=== PATIENT | female | born 1960 | race Caucasian/White ===

== ENCOUNTER 2019-08-18 18:51 | Emergency (ER) | payer OTHER ==
--- NOTE | 2019-08-18 19:01 | PDOC ---
Rapid Medical Evaluation Time Seen by Provider: 08/18/19 18:57 Medical Evaluation: Allergies Allergy/AdvReac Type Severity Reaction Status Date / Time No Known Allergies Allergy Verified 11/06/11 08:05 08/18/19 18:58 CC: headache x1 month s/p striking head on metal bar PE: No focal neuro findings Orders: nothing Patient will proceed to ER for further evaluation. Discharge Disposition - Diagnosis Headache - Referrals - Patient Instructions - Post Discharge Activity
[2019-08-18 19:06] VITALS: BP 143/85; PULSE 70; TEMP 98.2; BMI 23.5
[2019-08-18] MEDS ORDERED: ACETAMINOPHEN 325 MG TABLET (FP) PO ONE (19:18)
[2019-08-18] MEDS ORDERED: ACETAMINOPHEN 325 MG TABLET (FP) ONE (19:20)
--- NOTE | 2019-08-18 19:23 | PDOC ---
History of Present Illness - General Chief Complaint: Headache Stated Complaint: HEAD PAIN Time Seen by Provider: 08/18/19 18:57 History Source: Patient - History of Present Illness Timing/Duration: reports: other Severity: Yes: moderate Past History - Past Medical History Allergies/Adverse Reactions: Allergies Allergy/AdvReac Type Severity Reaction Status Date / Time No Known Allergies Allergy Verified 08/18/19 19:04 Home Medications: Ambulatory Orders Sertraline HCl [Zoloft] 100 mg PO DAILY 11/06/11 Clonazepam [Klonopin] 1 mg PO DAILY 11/17/13 FA/Mv,Ca,Iron,Min/Lycopene/Lut [Centrum Tablet] 1 each PO DAILY 11/17/13 Progesterone, Micronized [Progesterone] 100 mg PO DAILY 11/17/13 Anemia: No Asthma: No Cancer: No Cardiac Disorders: No CVA: No COPD: No CHF: No Dementia: No Diabetes: No GI Disorders: No Disorders: No HTN: No Hypercholesterolemia: No Liver Disease: No Seizures: No Thyroid Disease: No - Surgical History Abdominal Surgery: No Appendectomy: No Cardiac Surgery: No Cholecystectomy: No Lung Surgery: No Neurologic Surgery: No Orthopedic Surgery: No - Psycho Social/Smoking Cessation Hx Smoking History: Never smoked Have you smoked in the past 12 months: No Information on smoking cessation initiated: No Hx Alcohol Use: No Drug/Substance Use Hx: No Substance Use Type: None Hx Substance Use Treatment: No Review of Systems - Review of Systems ABD/GI: Yes: Nausea. No: Vomiting Neurological: Yes: Headache. No: Numbness, Tingling, Weakness, Dizziness *Physical Exam - Vital Signs Last Vital Signs Temp Pulse Resp BP Pulse Ox 98.2 F 70 18 143/85 96 08/18/19 19:02 08/18/19 19:02 08/18/19 19:02 08/18/19 19:02 08/18/19 19:02 - Physical Exam General Appearance: Yes: Appropriately Dressed. 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 negative: Responsive, Facial Droop, Sensory Deficit, Confused, Disoriented ED Treatment Course - RADIOLOGY Radiology Studies Ordered: Category Date Time Status HEAD CT WITHOUT CONTRAST [CT] Stat CT Scan 08/18/19 19:17 Ordered Medical Decision Making - Medical Decision Making 08/18/19 19:18 59-year-old female, denies any past medical history, and not on blood thinners, here for evaluation of ongoing headache s/p head injury. Patient states 1 month ago she accidentally struck head against metal monkey bars in [facility]. Initially felt dazed but no LOC. 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 States symptoms did resolve but then came back a week ago. Complaining mostly of frontal headache. No n/v currently. Denies dizziness, vertigo, visual changes or focal weakness see exam Possible concussion s/p closed head injury 1 month ago Not on blood thinners Neuro intact -Will get CT r/o subacute bleed given hx -pain control -Anticipate discharge w/ neuro referral 08/18/19 19:53 CT head read as negative. Patient stable to be discharged to follow-up with Dr. Cordova of neurology Discharge - Discharge Information Problems reviewed: Yes Clinical Impression/Diagnosis: H/O head injury Headache Qualifiers: Headache type: unspecified Headache chronicity pattern: unspecified pattern Intractability: not intractable Qualified Code(s): R51 - Headache Condition: Good Disposition: HOME - Follow up/Referral Referrals: Johnna Christianson MD [Primary Care Provider] - Herbert Cordova MD [Staff Physician] - - Patient Discharge Instructions Patient Printed Discharge Instructions: Concussion Additional Instructions: Your head CT was normal. Your symptoms are most likely due to a concussion which will gradually improve over weeks to months as discussed today Take Tylenol for headache as needed and follow-up with Dr. Cordova of neurology - Post Discharge Activity Work/Back to School Note: Back to Work
== END 2019-08-18 19:56 | disposition home or self-care (01) ==
LOC: JERFT 18:51
DX: S09.8XXA Other specified injuries of head, initial encounter (principal); R51 Headache; W22.8XXA Striking against or struck by other objects, initial encounter; Y93.89 Activity, other specified; Y92.830 Public park as the place of occurrence of the external cause; Y99.8 Other external cause status; R11.0 Nausea
CPT/HCPCS: 70450-TC; 99281-25

== ENCOUNTER 2020-08-28 08:38 | Observation (INO) | payer OTHER ==
[2020-08-28 10:54] LABS: PH,URINE 6.5 (5.0-8.0); URINE APPEARANCE CLEAR; URINE BILIRUBIN NEGATIVE (NEGATIVE); URINE COLOR YELLOW; URINE GLUCOSE (UA) NEGATIVE (NEGATIVE); URINE KETONE NEGATIVE (NEGATIVE); URINE LEUK ESTERASE NEGATIVE (NEGATIVE); URINE NITRITE NEGATIVE (NEGATIVE); URINE PROTEIN NEGATIVE (NEGATIVE); URINE UROBILINOGEN 0.2 mg/dL (0.2-1.0)
[2020-08-28 11:07] LABS: CHLORIDE 106 mmol/L (98-107); POTASSIUM 4.1 mmol/L (3.5-5.1); SODIUM 141 mmol/L (136-145)
[2020-08-28 11:09] LABS: ALBUMIN 3.9 g/dl (3.4-5.0); ANION GAP 6 MMOL/L (8-16); CALCIUM 8.6 mg/dL (8.5-10.1); CO2 30 mmol/L (21-32); GLUCOSE,RANDOM 85 mg/dL (74-106)
[2020-08-28 11:10] LABS: BLOOD UREA NITROGEN 9.8 mg/dL (7-18)
[2020-08-28 11:12] LABS: CREATININE 0.7 mg/dL (0.55-1.3)
[2020-08-28 11:13] LABS: SGOT/AST 19 U/L (15-37); SGPT/ALT 38 U/L (13-61)
[2020-08-28 11:14] LABS: BILIRUBIN,TOTAL 0.3 mg/dL (0.2-1); TOT PROT 7.2 g/dl (6.4-8.2)
[2020-08-28 11:15] LABS: ALK PHOS 66 U/L (45-117)
[2020-08-28 11:20] LABS: BASO % 0.7 % (0-2.0); EOS % 1.9 % (0-4.5); HEMATOCRIT 37.1 % (32.4-45.2); HEMOGLOBIN 12.7 GM/dL (10.7-15.3); LYMPH % 37.2 % (8-40); MCH 32.5 pg (25.7-33.7); MCHC 34.2 g/dl (32.0-36.0); MEAN CELL VOLUME 94.8 fl (80-96); MEAN PLT VOLUME 7.2 fl (7.5-11.1); MONO % 4.8 % (3.8-10.2); NEUT % 55.4 % (42.8-82.8); PLATELET COUNT 190 K/MM3 (134-434); RBC 3.92 M/mm3 (3.60-5.2); RDW 12.6 % (11.6-15.6); WHITE BLOOD COUNT 4.4 K/mm3 (4.0-10.0)
[2020-08-28] MEDS ORDERED: SODIUM CHLORIDE 500 ML IV STA (16:40)
[2020-08-28 18:57] LABS: COCAINE, UR NEGATIVE ng/ml (CUTOFF=300); URINE AMPHETAMINES NEGATIVE ng/ml (CUTOFF=500); URINE BARBITURATES NEGATIVE ng/ml (CUTOFF=200)
[2020-08-28 18:58] LABS: OPIATES, URI NEGATIVE ng/ml (CUTOFF=300); PHENCYCLIDINE,URINE NEGATIVE ng/ml (CUTOFF=25)
[2020-08-28 19:10] LABS: METHADONE, UR NEGATIVE ng/ml (CUTOFF=300)
[2020-08-28 19:15] LABS: URINE BENZODIAZEPINES POSITIVE ng/ml (CUTOFF=200)
[2020-08-28] MEDS ORDERED: buPROPion HCL 100 MG TABLET ONE (23:03)
[2020-08-28] MEDS: buPROPion HCL 75 MG TABLET PO SCH (23:07)
[2020-08-29 06:27] LABS: BASO % 0.4 % (0-2.0); EOS % 2.4 % (0-4.5); HEMATOCRIT 36.3 % (32.4-45.2); HEMOGLOBIN 12.2 GM/dL (10.7-15.3); LYMPH % 44.9 % (8-40); MCHC 33.6 g/dl (32.0-36.0); MEAN CELL VOLUME 95.1 fl (80-96); MEAN PLT VOLUME 7.2 fl (7.5-11.1); MONO % 5.4 % (3.8-10.2); NEUT % 46.9 % (42.8-82.8); PLATELET COUNT 174 K/MM3 (134-434); RBC 3.82 M/mm3 (3.60-5.2); RDW 12.7 % (11.6-15.6); WHITE BLOOD COUNT 5.1 K/mm3 (4.0-10.0)
[2020-08-29] MEDS: SODIUM CHLORIDE 1,000 ML IV SCH (06:35)
[2020-08-29 06:45] LABS: CHLORIDE 109 mmol/L (98-107); SODIUM 143 mmol/L (136-145)
[2020-08-29 06:48] LABS: CALCIUM 8.5 mg/dL (8.5-10.1)
[2020-08-29 06:49] LABS: ALBUMIN 3.5 g/dl (3.4-5.0); ANION GAP 4 MMOL/L (8-16); BLOOD UREA NITROGEN 14.7 mg/dL (7-18); CO2 30 mmol/L (21-32); GLUCOSE,RANDOM 88 mg/dL (74-106)
[2020-08-29 06:52] LABS: BILIRUBIN,TOTAL 0.4 mg/dL (0.2-1); CHOLESTEROL 197 mg/dL (50-200); CREATININE 0.8 mg/dL (0.55-1.3); LDL CHOLESTEROL (ONLY SJRH) 121 mg/dL (5-100); SGOT/AST 16 U/L (15-37); SGPT/ALT 30 U/L (13-61); TOT PROT 6.8 g/dl (6.4-8.2); TRIGLYCERIDES 206 mg/dL (0-150)
[2020-08-29 06:54] LABS: ALK PHOS 63 U/L (45-117); HDL CHOLESTEROL 52 mg/dL (40-60)
[2020-08-29] MEDS ORDERED: MULTIVITAMINS (DAILY MVI) TABLET (FP) ONE (08:48)
[2020-08-29] MEDS ORDERED: SERTRALINE HCL 50 MG TABLET (FP) ONE (08:48)
[2020-08-29] MEDS ORDERED: clonazePAM 0.5 MG TABLET ONE (08:48)
[2020-08-29] MEDS ORDERED: ENOXAPARIN NA (PORCINE) 40 MG/0.4 ML DISP.SYRIN SQ ONE (08:49)
[2020-08-29] MEDS ORDERED: buPROPion HCL 100 MG TABLET ONE ×2 (08:49→22:10)
[2020-08-29] MEDS: MULTIVITAMINS (DAILY MVI) TABLET (FP) PO SCH (09:00)
[2020-08-29] MEDS: buPROPion HCL 75 MG TABLET PO SCH ×2 (09:00→22:14)
[2020-08-29] MEDS: SERTRALINE HCL 50 MG TABLET (FP) PO SCH (09:00)
[2020-08-29] MEDS: ENOXAPARIN NA (PORCINE) 40 MG/0.4 ML DISP.SYRIN SQ SCH (09:00)
[2020-08-29] MEDS: clonazePAM 0.5 MG TABLET PO SCH (09:00)
[2020-08-30 01:25] VITALS: BMI 23.0
[2020-08-30] MEDS ORDERED: PT OWN MED DRAWER 7, Y5N ONE (03:31)
[2020-08-30] MEDS: SODIUM CHLORIDE 1,000 ML IV SCH (07:00)
[2020-08-30 07:18] LABS: BASO % 0.6 % (0-2.0); EOS % 2.1 % (0-4.5); HEMATOCRIT 35.1 % (32.4-45.2); HEMOGLOBIN 11.9 GM/dL (10.7-15.3); MCH 32.6 pg (25.7-33.7); MCHC 33.9 g/dl (32.0-36.0); MEAN CELL VOLUME 96.1 fl (80-96); MEAN PLT VOLUME 7.2 fl (7.5-11.1); MONO % 4.7 % (3.8-10.2); NEUT % 50.6 % (42.8-82.8); PLATELET COUNT 179 K/MM3 (134-434); RBC 3.65 M/mm3 (3.60-5.2); RDW 12.7 % (11.6-15.6); WHITE BLOOD COUNT 4.7 K/mm3 (4.0-10.0)
[2020-08-30 07:40] LABS: POTASSIUM 3.6 mmol/L (3.5-5.1)
[2020-08-30 07:56] LABS: ALBUMIN 3.3 g/dl (3.4-5.0); CALCIUM 8.4 mg/dL (8.5-10.1)
[2020-08-30 07:57] LABS: MAGNESIUM 2.5 mg/dL (1.8-2.4)
[2020-08-30 07:59] LABS: CREATININE 0.7 mg/dL (0.55-1.3)
[2020-08-30 08:00] LABS: BILIRUBIN,TOTAL 0.4 mg/dL (0.2-1); TOT PROT 6.5 g/dl (6.4-8.2)
[2020-08-30] MEDS: ENOXAPARIN NA (PORCINE) 40 MG/0.4 ML DISP.SYRIN SQ SCH (09:22)
[2020-08-30] MEDS: SERTRALINE HCL 50 MG TABLET (FP) PO SCH (09:22)
[2020-08-30] MEDS: MULTIVITAMINS (DAILY MVI) TABLET (FP) PO SCH (09:22)
[2020-08-30] MEDS: buPROPion HCL 75 MG TABLET PO SCH (09:22)
[2020-08-30] MEDS: clonazePAM 0.5 MG TABLET PO SCH (09:23)
[2020-08-30 15:01] VITALS: BP 127/69; PULSE 62; TEMP 97.4
== END 2020-08-30 15:40 | disposition home or self-care (01) ==
LOC: JER 08:38 → JERBED 11:42 → J4W 08-30 00:27
PROVIDERS: ATTEND Nurse Practitioner Acute Care
PROC: 3E023GC Introduction of Other Therapeutic Substance into Muscle, Percutaneous Approach (ICD-10-PCS; principal; 2020-08-28)
PROC: 3E0337Z Introduction of Electrolytic and Water Balance Substance into Peripheral Vein, Percutaneous Approach (ICD-10-PCS; 2020-08-28)
DX: R55 Syncope and collapse (principal); Z87.828 Personal history of other (healed) physical injury and trauma; F41.9 Anxiety disorder, unspecified; R51.9 Headache, unspecified; R00.2 Palpitations; Z29.9 Encounter for prophylactic measures, unspecified; E78.5 Hyperlipidemia, unspecified; W18.39XA Other fall on same level, initial encounter; Y93.89 Activity, other specified
CPT/HCPCS: 36415; 70450-TC; 70551-TC; 71045-TC-FY; 72125-TC; 80053; 80061; 80307; 81003; 82306; 82550; 82607; 83036; 83721; 83735; 84439; 84443; 84484; 85025; 86780; 87077; 87086; 93005; 93010; 93306-TC; 93880-TC; 97116-GP; 97161-GP; 99285-25; C9803; G0378; U0003